=== PATIENT | male | born 1930 | race Caucasian/White ===

== ENCOUNTER → 2018-02-18 | Outpatient (CLI) | payer MEDICARE ==
[~2018-02-18] MED LIST: IOHEXOL-350 50ML VIAL IV ONE
== END | disposition home or self-care (01) ==
LOC: RAH 08:17
PROVIDERS: ATTEND Internal Medicine Cardiovascular Disease
DX: I71.4 Abdominal aortic aneurysm, without rupture (principal); I70.293 Other atherosclerosis of native arteries of extremities, bilateral legs; K57.30 Diverticulosis of large intestine without perforation or abscess without bleeding; R19.02 Left upper quadrant abdominal swelling, mass and lump; Z96.651 Presence of right artificial knee joint; Z95.820 Peripheral vascular angioplasty status with implants and grafts
CPT/HCPCS: 75635; Q9967

== ENCOUNTER 2018-05-11 05:36 | Observation (INO) | payer MEDICARE ==
[2018-05-07 10:34] LABS: EOSINOPHILS % (AUTO) 3.8 % (0.0-8.0); LYMPHOCYTES % (AUTO) 24.3 % (21.0-51.0); MEAN CORPUSCULAR HEMOGLOBIN 35.4 pg (27.0-33.0); MEAN CORPUSCULAR HGB CONC 34.5 g/dL (32.0-36.0); MEAN CORPUSCULAR VOLUME 102.5 fL (79-99); NEUTROPHILS % (AUTO) 57.9 % (40.0-77.0); NUCLEATED RED BLOOD CELLS 0.1 % (0.0-0.19); PLATELET COUNT (AUTO) 163 K/uL (130-400); RED CELL DISTRIBUTION WIDTH 13.6 % (11.0-15.5); WHITE BLOOD COUNT (AUTO) 5.8 K/uL (4.8-10.8)
[2018-05-07 10:41] VITALS: BP 144/77
[2018-05-07 10:43] LABS: CREATININE 1.2 mg/dL (0.5-1.5); POTASSIUM 5.4 mmol/L (3.5-5.1)
[2018-05-07 10:52] LABS: INR 1.04 (0.85-1.15); PARTIAL THROMBOPLASTIN TIME 29.1 SEC (26.3-35.5); PROTHROMBIN TIME 10.9 SEC (9.6-11.6)
[2018-05-07 11:52] LABS: APPEARANCE,URINE Clear (CLEAR); BILIRUBIN,URINE Negative (NEGATIVE); COLOR,URINE Yellow (YELLOW); GLUCOSE, URINE (UA) Negative (NEGATIVE); KETONES,URINE Negative (NEGATIVE); LEUKOCYTE ESTERASE ,URINE Small (NEGATIVE); NITRATE,URINE Negative (NEGATIVE); OCCULT BLOOD,URINE Negative (NEGATIVE); PH,URINE 6.5 (5.0-8.0); PROTEIN,URINE Negative (NEGATIVE); UROBILINOGEN,URINE 0.2 mg/dL (0.2-1.0)
[2018-05-07 12:03] LABS: BACTERIA,URINE Rare /HPF (None Seen); SQUAMOUS EPITHELIAL CELL,UR 0-2 /HPF (0-2)
[2018-05-07 12:04] LABS: RBC,URINE 0-1 /HPF (0-1); WBC,URINE 0-1 /HPF (0-1)
--- NOTE | 2018-05-10 10:45 | NUR ---
ABNORMAL LABS SHARA BRITTON NOTIFIED PT'S POTASSIUM 5.4. CHEST X RAY RESULT REPORTED WELL. NO FURTHER ORDERS GIVEN.
[2018-05-11] VITALS (15 sets, daily range): BP systolic 100–130; BP diastolic 46–76
[~2018-05-11] VITALS: Ht 182.9 cm; Wt 97.6 kg
[~2018-05-11 05:36] MED LIST changes: +APIX5TAB PO; +DILT240T13 PO; +FAMO20TA8 PO; +FURO40TA5 PO; -IOHEXOL-350 50ML VIAL IV ONE; +IPRA4AER IH; +METO50TA18 PO; +POTA20TA82 PO; +PREG75 PO; +SODIUM CHLORIDE 0.9% 500ML 500 ML IV SCH
--- NOTE | 2018-05-11 06:15 | NUR ---
RECEIVED ,AMBULATORY ,NO COMPLAINTS ,ORIENTED TO ROOM AND MADE COMFORTABLE,ACCOMPANIED BY ,,,CALLBELL IN REACH
--- NOTE | 2018-05-11 06:40 | NUR ---
STRONG PEDAL PULSE TO RT FOOT,LT PEDAL PULSE WEAK,AND TO TIBIAL,ABLE TO GET WITH DOPPLER Addendum: 05/11/18 at 0803 by SAM LOPEZ LVN LVN STRONG PULSES TO LT PEDAL AND TIBIAL WITH DOPPLER
[2018-05-11] MEDS ORDERED: SODIUM CHLORIDE 0.9% 1000ML 1,000 ML IV ONE (07:00)
[2018-05-11] MEDS ORDERED: SODIUM BICARB 50MEQ 50ML VIAL ONE (08:24)
[2018-05-11] MEDS ORDERED: LIDOCAINE HCL 2% 20ML ONE (08:24)
[2018-05-11] MEDS ORDERED: NITROGLYCERIN 5 MG/ML 10 ML VIAL IV ONE (08:24)
[2018-05-11] MEDS ORDERED: IOHEXOL 350 MG/ML 100ML INFUS..BTL IV ONE (08:24)
[2018-05-11] MEDS ORDERED: IOHEXOL-350 50ML VIAL IV ONE ×2 (08:24→08:31)
[2018-05-11] MEDS ORDERED: MIDAZOLAM HCL 1 MG/ML 2ML VIAL ONE (08:47)
[2018-05-11] MEDS ORDERED: MEPERIDINE-PF 25 MG/ML SYG ONE (08:47)
[2018-05-11] MEDS ORDERED: HEPARIN SODIUM 1000UNIT/ML 10ML VIAL ONE (09:11)
[2018-05-11] MEDS ORDERED: IOHEXOL-350 75 ML VIAL IV ONE (09:19)
[2018-05-11] MEDS ORDERED: CLOPIDOGREL BISULFATE 300 MG TAB ONE (09:52)
[2018-05-11] MEDS ORDERED: ASPIRIN 325MG EC TAB 325 MG TABLET.DR PO ONE (09:52)
[2018-05-11] MEDS ORDERED: NITROGLYCERIN 50 MG/D5% WATER 1 BOT IV PRN (10:00)
[2018-05-11] MEDS ORDERED: TEMAZEPAM 30 MG CAP PO PRN (10:00)
[2018-05-11] MEDS ORDERED: CLOPIDOGREL BISULFATE 300 MG TAB PO SCH (10:00)
[2018-05-11] MEDS ORDERED: SODIUM CHLORIDE 0.9% 1000ML 1,000 ML IV SCH (10:00)
[2018-05-11] MEDS ORDERED: ONDANSETRON HCL 4 MG/2 ML VIAL IVP PRN (10:00)
[2018-05-11] MEDS ORDERED: ACETAMINOPHEN-CODEINE 300/30MG TAB PO PRN ×2 (10:00)
--- NOTE | 2018-05-11 10:30 | NUR ---
RECEIVED AWAKE ALERT ,,IV TO LT WRIST INTACT AT 75 ML/HR,SITE HEALTHY,DRESSING TO RT GROIN CLEAN AND DRY ,CALLBELL IN REACH, NO COMPLAINTS,INSTRUCTED ON BEDREST AND KEEPING RT LEG STRAIGHT ,AND NO PICKING HEAD UP,CALL NURSE FOR ASSISTANCE.,HOLD TO SITE IF NEEDS TO COUGH OR SNEEZE ,VERBALIZES UNDERSTANDING
--- NOTE | 2018-05-11 11:30 | NUR ---
HAVING LUNCH WITH ASSISTANCE ,PT IN NO DISTRESS,,, AT BEDSIDE,CALL LANG IN REACH
--- NOTE | 2018-05-11 11:40 | NUR ---
HAVING LUNCH WITH HELP, NO [id number] CALL RICKEY IN REACH Addendum: 05/11/18 at 1141 by SAM LOPEZ LVN LVN Amended: Links added.
--- NOTE | 2018-05-11 12:05 | NUR ---
DR DAVIS [HOSPITALIST] PAGED, TO MAKE HIM AWARE OF ADMISSION
--- NOTE | 2018-05-11 12:45 | NUR ---
DR DAVIS CALLS BACK AND MADE AWARE OF PT AND OF BEING ADMITTED BY EMERSON MCCORMACK
--- NOTE | 2018-05-11 13:15 | NUR ---
SITE TO RT GROIN WITH NO HEMATOMA ,NO BLEEDING ,CHECKED BY CATALINO MCCORMACK,PULSES TO RT LOWER EXTREMITIES WITH NO CHANGE,,,,SPOUSE AT BEDSIDE,CALL RICKEY IN REACH Addendum: 05/11/18 at 1328 by SAM LOPEZ LVN LVN Amended: Links added.
--- NOTE | 2018-05-11 14:25 | NUR ---
PULSES ASSISTED PT TO SIT UP ON BED,CATALINO MCCORMACK IN ASSISTS WITH PT, NO CHANGE ON PULSES TO LOWER EXTREMITIES,WARM ,VERIFIED PULSES BY CATALINO MCCORMACK Addendum: 05/11/18 at 1443 by SAM LOPEZ LVN LVN Amended: Links added.
--- NOTE | 2018-05-11 15:00 | NUR ---
REPORT REPORT GIVEN TO JAC MCCORMACK ,PT GOING TO ROOM 218,DRESSING TO RT GROIN CLEAN AND DRY ,PULSES PRESENT,WARM TO TOUCH,,TO ROOM VIA W/C Addendum: 05/11/18 at 1527 by SAM LOPEZ LVN LVN NO HEMATOMA,NO BLEEDING Addendum: 05/11/18 at 1530 by SAM LOPEZ LVN LVN AT 1500 NO HEMATOMA ,NO BLEEDING NOTED TO RT GROIN
[2018-05-11] MEDS: METOPROLOL TARTRATE 50 MG TAB PO SCH (21:15)
--- NOTE | 2018-05-11 22:50 | NUR ---
PATIENT TRANSFERRED TO ROOM. PATIENT DENIES ANY COMPLAINTS OF PAIN OR DISCOMFORT AT PRESENT. DRESSING TO RT GROIN CLEAN, DRY, AND INTACT. SITE APPEARS SOFT TO PALPATION. PATIENT PACED IN THE 60'S ON THE MONITOR. IV SITE INTACT, FLUSHES WITHOUT DIFFICULTY. PATIENT ORIENTATED TO ROOM, CALL LANG, PHONE, AND TV. CONTINUE TO MONITOR.
[2018-05-12 03:50] VITALS: BP 99/54
[2018-05-12 04:27] LABS: HEMATOCRIT 35.8 % (42-54); MEAN CORPUSCULAR HEMOGLOBIN 36.6 pg (27.0-33.0); MEAN CORPUSCULAR HGB CONC 35.7 g/dL (32.0-36.0); MEAN CORPUSCULAR VOLUME 102.6 fL (79-99); NUCLEATED RED BLOOD CELLS 0.1 % (0.0-0.19); PLATELET COUNT (AUTO) 146 K/uL (130-400); RED BLOOD CELL COUNT(AUTO) 3.49 MIL/uL (4.50-6.20); RED CELL DISTRIBUTION WIDTH 13.3 % (11.0-15.5)
[2018-05-12 04:50] LABS: CREATININE 1.1 mg/dL (0.5-1.5); POTASSIUM 3.6 mmol/L (3.5-5.1)
[2018-05-12 07:00] VITALS: BP 117/72
[2018-05-12] MEDS ORDERED: CLOPIDOGREL BISULFATE 75 MG TAB PO SCH (09:00)
[2018-05-12] MEDS ORDERED: PANTOPRAZOLE SODIUM 40 MG TABLET.DR PO SCH (09:00)
[2018-05-12] MEDS ORDERED: ASPIRIN 81MG TAB.CHEW PO SCH (09:00)
[2018-05-12] MEDS: METOPROLOL TARTRATE 50 MG TAB PO SCH (09:28)
[2018-05-12 11:00] VITALS: BP 123/56
[2018-05-12] MEDS ORDERED: METO100T14 PO (11:37)
== END 2018-05-12 13:00 | disposition home or self-care (01) ==
LOC: DAH 05:36 → DAHIP 05:37 → DAH 05:37 → 2CH 14:56 → 2AH 22:56
PROVIDERS: ADMIT Internal Medicine; ATTEND Internal Medicine
DX: I25.110 Atherosclerotic heart disease of native coronary artery with unstable angina pectoris (principal); I10 Essential (primary) hypertension; E78.5 Hyperlipidemia, unspecified; I34.0 Nonrheumatic mitral (valve) insufficiency; I73.9 Peripheral vascular disease, unspecified; J44.9 Chronic obstructive pulmonary disease, unspecified; I70.1 Atherosclerosis of renal artery; I48.2 Chronic atrial fibrillation; I45.9 Conduction disorder, unspecified; Z79.01 Long term (current) use of anticoagulants; Z95.0 Presence of cardiac pacemaker
CPT/HCPCS: 36415 ×2; 71045; 75625; 80048 ×2; 80061; 81001; 85025; 85027; 85347 ×2; 85610; 85730; 93005; 93458; A4606; C1725; C1760; C1769 ×2; C1874 ×2; C1887; C1894 ×2; C9600 ×2; G0378 ×31; J1644 ×2; J2175; J2250; J3490 ×3; J7030 ×2; Q9965 ×2; Q9967 ×4; 75630; 99156; 99157

== ENCOUNTER 2019-02-04 10:00 | Observation (INO) | payer MEDICARE ==
[2019-02-01 09:35] LABS: BASOPHILS % (AUTO) 0.9 % (0.0-5.0); EOSINOPHILS % (AUTO) 3.6 % (0.0-8.0); HEMATOCRIT 38.1 % (42-54); LYMPHOCYTES % (AUTO) 18.4 % (21.0-51.0); MEAN CORPUSCULAR HEMOGLOBIN 35.7 pg (27.0-33.0); MONOCYTES % (AUTO) 11.3 % (3.0-13.0); NEUTROPHILS % (AUTO) 65.8 % (40.0-77.0); PLATELET COUNT (AUTO) 149 K/uL (130-400); RED BLOOD CELL COUNT(AUTO) 3.74 MIL/uL (4.50-6.20); RED CELL DISTRIBUTION WIDTH 13.6 % (11.0-15.5)
[2019-02-01 09:40] LABS: CREATININE 1.5 mg/dL (0.5-1.5); POTASSIUM 4.7 mmol/L (3.5-5.1)
[2019-02-01 09:44] LABS: INR 1.06 (0.85-1.15); PARTIAL THROMBOPLASTIN TIME 28.2 SEC (26.3-35.5); PROTHROMBIN TIME 11.1 SEC (9.6-11.6)
[2019-02-01 09:49] VITALS: BP 90/55
--- NOTE | 2019-02-03 13:19 | NUR ---
LABS INFORMED SHARA PANG OF ABNORMAL BUN/CREA. NO ORDERS RECEIVED. PROCEED WITH PLANNED PROCEDURE.
[~2019-02-04] VITALS: Ht 182.9 cm; Wt 95.9 kg
[2019-02-04] VITALS (12 sets, daily range): BP systolic 80–131; BP diastolic 33–72
[~2019-02-04 10:00] MED LIST changes: +APIX2.5T PO; -APIX5TAB PO; +CLOP75TA14 PO; +CYAN250010 PO; -DILT240T13 PO; -FAMO20TA8 PO; -IPRA4AER IH; +LISI10TA PO; +METO100T14 PO; -METO50TA18 PO; +NITROQUICK SL; -POTA20TA82 PO; +PREG150C PO; -PREG75 PO; +ROSU10TA22 PO; +SODIUM CHLORIDE 0.9% 1000ML 1,000 ML IV ONE; +UBID200C18 PO
[2019-02-04] MEDS ORDERED: BUPIVACAINE/PF 0.25% 30ML VIAL IJ ONE (18:42)
[2019-02-04] MEDS ORDERED: IODIXANOL 320 MG/ML 100 ML VIAL ONE (18:42)
[2019-02-04] MEDS ORDERED: LIDOCAINE HCL 1% MDV 50ML VIAL ONE (18:42)
[2019-02-04] MEDS ORDERED: CEFAZOLIN SODIUM 1 GM VIAL ONE (18:42)
[2019-02-04] MEDS ORDERED: MEPERIDINE-PF 25 MG/ML SYG ONE ×2 (18:55→19:04)
[2019-02-04] MEDS ORDERED: MIDAZOLAM HCL 1 MG/ML 2ML VIAL ONE ×2 (18:55→19:04)
[2019-02-04] MEDS ORDERED: THROMBIN-JMI 5000 UNIT/VIAL TP ONE (19:45)
[2019-02-04] MEDS ORDERED: OCTYL 2-CYANOACRYLATE 1 EACH TP ONE (20:01)
[2019-02-04] MEDS ORDERED: ONDANSETRON HCL 4 MG/2 ML VIAL IV PRN (20:15)
[2019-02-04] MEDS ORDERED: ACETAMINOPHEN 325 MG TAB PO PRN (20:15)
[2019-02-04] MEDS ORDERED: ATORVASTATIN CALCIUM 20 MG TABLET PO SCH (21:00)
[2019-02-04] MEDS: CLOPIDOGREL BISULFATE 75 MG TAB PO SCH (21:53)
[2019-02-04] MEDS: PREGABALIN 75 MG CAPSULE PO SCH (21:54)
[2019-02-04] MEDS: METOPROLOL TARTRATE 50 MG TAB PO SCH (21:54)
--- NOTE | 2019-02-04 23:35 | NUR ---
HOSPITALIST CONSULT informed Janice BREEDING TECHNICIAN control system computer scientist for hospitalist group of consult for mm . stated she would be by to see the patient
[2019-02-05 03:00] VITALS: BP 80/50
[2019-02-05] MEDS ORDERED: CEFAZOLIN SODIUM 1 GM VIAL IVP SCH ×2 (03:00→05:00)
[2019-02-05 06:50] VITALS: BP 105/44
[2019-02-05 07:35] VITALS: BP 83/53
[2019-02-05] MEDS: METOPROLOL TARTRATE 50 MG TAB PO SCH (08:26)
[2019-02-05] MEDS ORDERED: UBIDECARENONE 200 MG PO SCH (09:00)
[2019-02-05] MEDS ORDERED: FUROSEMIDE 40 MG TABLET PO SCH (09:00)
[2019-02-05] MEDS ORDERED: LISINOPRIL 10 MG TABLET PO SCH (09:00)
[2019-02-05] MEDS ORDERED: CYANOCOBALAMIN (VITAMIN B-12) 1,000 MCG TABLET PO SCH (09:00)
[2019-02-05] MEDS: PREGABALIN 75 MG CAPSULE PO SCH (09:23)
[2019-02-05] MEDS: CLOPIDOGREL BISULFATE 75 MG TAB PO SCH (09:24)
[2019-02-05] MEDS ORDERED: DOXY100C2 PO (11:14)
[2019-02-05 12:00] VITALS: BP 112/67
--- NOTE | 2019-02-05 13:20 | NUR ---
HL REMOVED, CATHETER INTACT. DISCHARGE INSTRUCTIONS GIVEN TO PT. AND FAMILY MEMBERS AT BEDSIDE, VERBALIZED MUTUAL UNDERSTANDING. Addendum: 02/05/19 at 1620 by KIESHA FRANCO RN RN PRESSURE DRSG REMOVED. CLEAR OPSITE WITH NON-ADHERING DRSG IN PLACE, D/I. MINIMAL ECCHYMOSIS, NO HEMATOMA. NO CREPITUS NOTED.
== END 2019-02-05 13:30 | disposition home or self-care (01) ==
LOC: DAH 10:00 → 2DH 10:01
PROVIDERS: ADMIT Internal Medicine; ATTEND Internal Medicine
DX: I42.0 Dilated cardiomyopathy (principal); I25.10 Atherosclerotic heart disease of native coronary artery without angina pectoris; I11.0 Hypertensive heart disease with heart failure; I50.9 Heart failure, unspecified; I48.21 Permanent atrial fibrillation; R00.1 Bradycardia, unspecified; I48.20 Chronic atrial fibrillation, unspecified; I71.4 Abdominal aortic aneurysm, without rupture; I73.9 Peripheral vascular disease, unspecified; E78.5 Hyperlipidemia, unspecified; M19.90 Unspecified osteoarthritis, unspecified site; Z86.79 Personal history of other diseases of the circulatory system; Z95.0 Presence of cardiac pacemaker; Z95.5 Presence of coronary angioplasty implant and graft; Z79.01 Long term (current) use of anticoagulants; Z79.899 Other long term (current) drug therapy; Z88.1 Allergy status to other antibiotic agents; Z91.030 Bee allergy status
CPT/HCPCS: 33225; 33229; 36415; 71046; 80048; 85025; 85610; 85730; 93005; A4215; A4216; A4221; A4222; A4223 ×3; A4606; A4663; C1769 ×2; C1894; C1900; C2621; G0378 ×17; J0690 ×2; J2175 ×2; J2250 ×2; J3490 ×3; J7030; Q9967; 99156; 99157